=== PATIENT | male | born 1955 | race Caucasian/White ===

== ENCOUNTER 2016-10-04 08:57 | Inpatient (IN) | payer OTHER ==
[2016-10-04] VITALS (13 sets, daily range): BP systolic 126–158; BP diastolic 76–95; PULSE 62–74; RESP 10–18; TEMP 98.1; Ht 170.2 cm; Wt 65.9 kg
[~2016-10-04] VITALS: Ht 170.2 cm; Wt 65.9 kg
[2016-10-04] MEDS ORDERED: ASPIRIN 81 MG TAB PO STA (09:09)
[2016-10-04] MEDS ORDERED: NITROGLYCERIN (SL) 0.4 MG TAB SL ONE (09:30)
--- NOTE | 2016-10-04 09:35 | ERA ---
ER Documentation Chief Complaint Date/Time DATE: 10/04/16 TIME: 09:30 Chief Complaint CP and sob sice yesterday. SEnd by MD. PHAN 61-year-old male with a history of hypertension and diabetes presenting to the ER with chest pain. He states the pain started yesterday while he was walking around 1 PM. It improved with rest. This morning he was walking in his house and started having the chest pain again. The pain is a pressure-like pain with associated palpitations, diaphoresis, dizziness, nausea but no vomiting. His pain lasted about 2 hours today. It was initially a 10 out of 10, currently a 5 out of 10. He went to a clinic where he received aspirin and was referred to the ER for further workup. Pain is nonradiating. Worse with exertion, better with rest. ROS All systems reviewed and are negative except as per history of present illness. PMhx/Soc Medical and Surgical Hx: pt denies Surgical Hx History of Surgery: No Hx Cardiac Disorders: Yes (Hypertension) Hx Miscellaneous Medical Probl: Yes (Diabetes, high cholesterol) Hx Alcohol Use: Yes Hx Substance Use: No Hx Tobacco Use: No Smoking Status: Never smoker FmHx Family History: diabetes (Mom), No coronary disease Physical Exam Vitals Vital Signs Date Time Temp Pulse Resp B/P Pulse Ox O2 Delivery O2 Flow Rate FiO2 10/04/16 09:52 98.1 70 18 145/83 98 10/04/16 09:23 Nasal Cannula 2 10/04/16 09:02 97.1 80 18 194/93 98 Physical Exam Const: Well-appearing, no distress, no diaphoresis Head: Atraumatic Eyes: Normal Conjunctiva ENT: Normal External Ears, Nose and Mouth. Neck: Full range of motion.. No JVD. No meningismus. Resp: Clear to auscultation bilaterally Cardio: Regular rate and rhythm, no murmurs, rubs, gallops 2+ distal pulses Abd: Soft, non tender, non distended. No pulsatile mass. Normal bowel sounds Skin: No petechiae or rashes Back: No midline or flank tenderness Ext: No cyanosis, or edema Neur: Awake and alert Psych: Normal Mood and Affect Result Diagram: 10/04/16919 Results 24 hrs Laboratory Tests Test 10/04/16 09:20 Prothrombin Time 12.1Sec Prothrombin Time Ratio 0.9 INR International Normalized Ratio 0.90 Activated Partial Thromboplast Time 24.1Sec Sodium Level 135mmol/L Potassium Level 4.1mmol/L Chloride Level 95mmol/L Carbon Dioxide Level 29mmol/L Anion Gap 15 Blood Urea Nitrogen 16mg/dl Creatinine 0.84mg/dl Glucose Level 529mg/dl Calcium Level 9.3mg/dl Troponin I Pending Current Medications Medications (Trade) Dose Ordered Sig/Dena Route PRN Reason Start Time Stop Time Status Last Admin Dose Admin Aspirin (Aspirin) 162 mg ONCE STAT PO 10/04/16 09:09 10/04/16 09:11 DC 10/04/16 09:23 Nitroglycerin 1 tab 1 tab ONCE ONCE SL 10/04/16 09:30 10/04/16 09:31 DC 10/04/16 09:35 Sodium Chloride (NS) 1,000 ml @ 1,000 mls/hr Q1H ONCE IV 10/04/16 10:20 10/04/16 11:19 10/04/16 10:22 Ondansetron HCl (Zofran Inj) 4 mg ONCE STAT IV 10/04/16 10:20 10/04/16 10:22 DC Insulin Human Lispro (Humalog) 10 unit ONCE STAT SC 10/04/16 10:22 10/04/16 10:23 DC Procedures/MDM EKG #1: Rate/Rhythm: Normal sinus rhythm with sinus arrhythmia QRS, ST, T-waves: ST elevations in V2 through V4 with T-wave inversions in 1 and aVL, mild NV depressions in inferolateral leads Impression: Does not appear to be STEMI, but concerning for ischemia EKG #2: Rate/Rhythm: Normal sinus rhythm QRS, ST, T-waves: ST elevations in V2 through V4 with T-wave inversions in 1 and aVL, mild NV depressions in inferolateral leads Impression: Concerning for ischemia, unchanged compared to previous EKG#3: Rate/Rhythm: Normal sinus rhythm QRS, ST, T-waves: Anterior ST elevations, inferior ST elevations and NV depressions noted as well Impression: Acute anterior STEMI Chest X-ray 1V Interpreted by me: Soft Tissue: No acute abnormalities Bones: No acute abnormalities Mediastinum/Cardiac Silhouette/Lungs: No acute abnormalities Labs CBC: no anemia or evidence of infection BMP: Hyperglycemia without evidence of acidosis Troponin elevated MDM Patient is presenting with chest pain. Patient's symptoms are concerning for cardiac cause will require inpatient workup and continuous monitoring. Aspirin 162 mg given. Nitro sublingual given for chest pain and hypertension with improvement in his blood pressure and his symptoms. He had resolution of his chest pain. EKG is concerning for ischemia but does not meet STEMI criteria. I have a low suspicion for aortic dissection, aortic rupture, or pulmonary embolism. Labs are notable for hyperglycemia. 1 L of IV fluids was started. Insulin 10 units subcu was ordered. At, 10:20 patient had an episode of vomiting and increasing chest pain. Repeat EKG was done and showed evidence of an acute STEMI. Kitchen Supervisor was activated. Dr. Dugan was at bedside within minutes. Patient was consented for the Kitchen Supervisor and taken there immediately. Critical Care Time: 40 minutes Treatments/Evaluations: Close monitoring and treatment of unstable vital signs, cardiorespiratory, and neurologic status, while maintaining tight balance of fluid, respiratory, and cardiac interventions. This time includes discussing the case with the patient and the patients family. This time does not include all procedures stated elsewhere in this record. This time also includes reviewing old records, labs and radiological studies. This time includes examining and re-examining the patient. Additionally, this time also includes arranging care with admitting and consulting physicians. Accepting Care Team: Current data and ongoing care discussed. Time: Time of admission Primary Provider: Kaye Consulting: Ritchie Outstanding Data: none Departure Diagnosis: Primary Impression: Uncontrolled hypertension Additional Impressions: Acute ST elevation myocardial infarction (STEMI) Qualified Code: I21.3 - Acute ST elevation myocardial infarction (STEMI), unspecified artery Hyperglycemia Condition: Critical SEYMOUR HELLER MD Oct 04, 2016 09:35
[2016-10-04 09:37] LABS: ADD SCAN DIFF NO
[2016-10-04 09:40] LABS: BASOPHILS % 0.1 % (0.0-2.0); EOSINOPHILS % 0.3 % (0.0-7.0); HEMOGLOBIN 15.8 g/dl (14.0-18.0); LYMPHOCYTES % 11.4 % (15.0-51.0); MEAN CORPUSCULAR HEMOGLOBIN 31.4 pg (29.0-33.0); MEAN CORPUSCULAR HGB CONC 35.1 g/dl (32.0-37.0); MEAN CORPUSCULAR VOLUME 89.5 fl (82.0-101.0); MEAN PLATELET VOLUME 11.4 fl (7.4-10.4); MONOCYTE # 0.5 10^3/ul (0.3-0.9); MONOCYTES % 5.2 % (0.0-11.0); NEUTROPHIL # 7.2 10^3/ul (1.6-7.5); NEUTROPHILS % 82.4 % (39.0-77.0); PLATELET COUNT 184 10^3/UL (140-415); RED BLOOD COUNT 5.03 10^6/ul (4.70-6.10); RED CELL DISTRIBUTION WIDTH 12.4 % (11.5-14.5); WHITE BLOOD COUNT 8.8 10^3/ul (4.8-10.8)
[2016-10-04 09:58] LABS: INR 0.9; PROTIME 12.1 Sec (12.2-14.2); PT RATIO 0.9
[2016-10-04 09:59] LABS: PARTIAL THROMBOPLASTIN TIME 24.1 Sec (25.0-35.0)
[2016-10-04 10:05] LABS: CALCIUM 9.3 mg/dl (8.4-10.2); CREATININE 0.84 mg/dl (0.61-1.24); POTASSIUM 4.1 mmol/L (3.5-5.1)
--- NOTE | 2016-10-04 10:11 | RADRPT ---
PROCEDURE: Chest x-ray CLINICAL INDICATION: Chest pain TECHNIQUE: Chest single view COMPARISON: None FINDINGS: The heart is normal in size. The pulmonary vessels are normal in caliber. The lungs are clear. Th e costophrenic angles are sharp. The visualized bony thorax is unremarkable. IMPRESSION: No acute cardiopulmonary disease. RPTAT: HH .Aryan Andino MD, Date Time Electronically viewed and signed by .Aryan Andino MD, MD on 10/04/2016 10:11 .W/
[2016-10-04] MEDS ORDERED: SOD CHLORIDE 0.9% 1,000 ML IV ONE (10:20)
[2016-10-04] MEDS ORDERED: ONDANSETRON 4 MG INJ IV STA (10:20)
[2016-10-04] MEDS ORDERED: INSULIN LISPRO 100 UNIT/ML VIAL SC STA (10:22)
[2016-10-04 10:30] LABS: TROPONIN-I 0.208 ng/ml (0.00-0.12)
--- NOTE | 2016-10-04 10:40 | CONS ---
Date/Time of Note Date/Time of Note DATE: 10/04/16 TIME: 10:35 Assessment/Plan Assessment/Plan Chief Complaint/Hosp Course Anterior STEMI: to veterinary laboratory technician for immediate angio and PCI DM: new diagnosis -emergent cath -further recs to follow Problems: Consultation Date/Type/Reason Admit Date/Time Date of Consultation: Oct 04, 2016 Type of Consultation: Cardiology Reason for Consultation STEMI Referring Provider: SEYMOUR HELLER MD Hx of Present Illness 61 yo M with no prior medical history (undiagnosed DM based on glucose), who presented with chest pain. He had on and off chest pain yesterday and was constant starting this am. In the ED initial EKGs were thought to be nondiagnostic of STEMI and his pain improved with NTG. Subsequent EKG after he vomited showed an anterior STEMI. Pt is still having chest pain. per hPI Social History Smoking Status: Never smoker Exam/Review of Systems Vital Signs Vitals Vital Signs Date Time Temp Pulse Resp B/P Pulse Ox O2 Delivery O2 Flow Rate FiO2 10/04/16 09:52 98.1 70 18 145/83 98 10/04/16 09:23 Nasal Cannula 2 Exam Constitutional: alert, oriented Psych: no complaints Head: atraumatic, normocephalic Neck: No jvd Respiratory: crackles/rales, No clear to auscultation Cardiovascular: regular rate and rhythm, No edema Gastrointestinal: non-tender, soft Neurological: nl mental status, nl speech Results Result Diagram: 10/04/1620 10/04/16 0920 Results 24 hrs Laboratory Tests Test 10/04/16 09:20 White Blood Count 8.8 Red Blood Count 5.03 Hemoglobin 15.8 Hematocrit 45.0 Mean Corpuscular Volume 89.5 Mean Corpuscular Hemoglobin 31.4 Mean Corpuscular Hemoglobin Concent 35.1 Red Cell Distribution Width 12.4 Platelet Count 184 Mean Platelet Volume 11.4 H Neutrophils % 82.4 H Lymphocytes % 11.4 L Monocytes % 5.2 Eosinophils % 0.3 Basophils % 0.1 Nucleated Red Blood Cells % 0.0 Neutrophils # 7.2 Lymphocytes # 1.0 Monocytes # 0.5 Eosinophils # 0.0 Basophils # 0.0 Nucleated Red Blood Cells # 0.0 Prothrombin Time 12.1 L Prothrombin Time Ratio 0.9 INR International Normalized Ratio 0.90 Activated Partial Thromboplast Time 24.1 L Sodium Level 135 Potassium Level 4.1 Chloride Level 95 L Carbon Dioxide Level 29 Anion Gap 15 Blood Urea Nitrogen 16 Creatinine 0.84 Glucose Level 529 *H Calcium Level 9.3 Troponin I 0.208 *H Medications Medications Current Medications Sodium Chloride (NS) 1,000 ml @ 1,000 mls/hr Q1H ONCE IV Last administered on 10/04/16t 10:22; Admin Dose 1,000 MLS/HR; Start 10/04/16 at 10:20; Stop at 11:19 CAITLIN VACA Oct 04, 2016 10:39
[2016-10-04] MEDS ORDERED: NITROGLYCERIN (IC) 100 MCG/ML INJ ONE (10:47)
[2016-10-04] MEDS ORDERED: IODIXANOL LOCM 50 ML BTL ONE (10:47)
[2016-10-04] MEDS ORDERED: IODIXANOL LOCM 100 ML BTL ONE (10:47)
[2016-10-04] MEDS ORDERED: LIDOCAINE 1% (MDV) 20 ML INJ ONE (10:47)
[2016-10-04] MEDS ORDERED: MIDAZOLAM 1 MG/ML 2 ML INJ ONE (10:48)
[2016-10-04] MEDS ORDERED: FENTAnyl 50 MCG/ML VIAL ONE (10:49)
[2016-10-04] MEDS ORDERED: TICAGRELOR 90 MG TABLET ONE (10:58)
[2016-10-04] MEDS ORDERED: VERAPAMIL 5 MG INJ ONE (10:58)
[2016-10-04] MEDS ORDERED: BIVALIRUDIN 250MG /NS 50 ML 50 ML IVPB ONE (11:03)
--- NOTE | 2016-10-04 11:29 | OPR ---
Date/Time of Note Date/Time of Note DATE: 10/04/16 TIME: 11:29 Operative Report Free Text/Dictation Procedure Date: 10/04/2016 Procedures Performed: 1)Left heart catheterization with selective left and right coronary angiography. 2)Balloon angioplasty and stenting of the mid LAD with a Synergy 2.5 x 20 stent in the setting of a STEMI 3)Right femoral angiography and Perclose closure device. Pre-operative Diagnosis:anterior STEMI Post-operative Diagnosis:same, s/p PCI of LAD Indications: Description of Procedure: After informed consent, the patient was brought to the cardiac catheterization lab. The procedure site was prepped and draped in usual manner. The patient was premedicated with versed 1 mg and fentanyl 25 mcg. 8mL lidocaine was injected into the right groin. Next using the Seldinger technique, the 6 kinyarwanda sheath was inserted into the right femoral artery. Next using the JR4 and EBU 3.5, selective angiography of the left and right coronary arteries were obtained. The JR catheter accidently entered the LV so hemodynamics were obtained. The decision was made to proceed with PCI of the LAD as it was occluded in the setting of a STEMI. The EBU 3.5 guide was advanced and engaged into the left coronary artery. After appropriate anticoagulation and antiplatelets were given , the BMW angioplasty wire was advanced past the lesion and HORTENCIA 1 flow was seen. Next the 2.0 X 12 balloon was used to dilate the lesion times 2 at a maximum of 8 elisabet. Subsequently, the Synergy 2.5 x 20 stent was advanced to the lesion and deployed at 12 elisabet. Next the stent was post dilated with the 2.75 X 8 noncompliant balloon times 3 at a maximum of 12 elisabet. Final angiography revealed HORTENCIA 3 flow, no edge dissection, and appropriate stent expansion. Next all equipment was removed and hemostasis was achieved by Perclose closure device after femoral angiography was obtained. Findings: Anatomy/Hemodynamics: Left main:ostial 20% LAD: prox 20-30%, mid 100% immediately after a small diag Diagonal: 1mm vessel with diffuse ostial to prox 90% Circumflex: distal vessel has diffuse 80-90% disease supplying a 2mm OM Obtuse marginal: luminal irregularities RCA:20-30% plaquing PDA:mid 70% PLV:luminal irregularities LV angiography:not done LV-Ao: no gradient LVEDP: 31 mmHg Contrast used:110 mL Fluoroscopy time:5.3 min STEMI activation at 10:25 am, balloon time 10:59am. Medications used: Versed 1mg [id number] Angiomax bolus plus drip ASA given in ER ticagrelor 180mg NTG 200mcg IC x 1 verpamil 100 IC x 2 Equipment used: 6 kinyarwanda EBU 3.5 guide BMW angioplasty wire 2 x 12 balloon Synergy 2.5 x 20 drug eluting stent 2.75 x 8 noncompliant balloon Assessment: Anterior STEMI: s/p PCI of mid LAD 100% occlusion without complications CAD: residual disease of the PDA and distal Cx which can be revascularized PRN and do not need to be done inpt unless residual symptoms DM: new diagnosis Plan: -continue angiomax 4 hrs post PCI for STEMI -ASA 81mg -ticagrelor 90mg BID -lipitor -coreg -start ACEI if Cr ok -CAITLIN Ace Oct 04, 2016 11:29
[2016-10-04] MEDS ORDERED: morphine 2 MG INJ IV PRN (11:30)
--- NOTE | 2016-10-04 14:00 | QN ---
Documentation Comment H&P dict a/p 1. cards: stemi, s/p pci LAD cont 2* prevention 2. dm SYLVIA MATA MD Oct 04, 2016 14:00
[2016-10-04] MEDS ORDERED: SODIUM CHLORIDE 0.45% 500 ML BAG IV* ONE (14:30)
[2016-10-04] MEDS ORDERED: GLUCOSE GEL 15 GRAM TUBE PO PRN ×2 (14:30)
[2016-10-04] MEDS ORDERED: DEXTROSE 50% 50 ML SYRINGE IV PRN ×2 (14:30)
[2016-10-04] MEDS ORDERED: GLUCAGON 1 MG INJ IM PRN (14:30)
[2016-10-04] MEDS ORDERED: GLUCOSE GEL 15 GRAM TUBE BUCCAL PRN (14:30)
[2016-10-04] MEDS: INSULIN ASPART [NOVOLOG] 3 ML PEN SC SCH ×3 (15:00→20:37)
--- NOTE | 2016-10-04 15:10 | RADRPT ---
PROCEDURE: Chest radiograph series. CLINICAL INDICATION: Chest pain. TECHNIQUE: PA and lateral chest x-ray. COMPARISON: Chest radiograph 12/21/2014 FINDINGS: The cardiomediastinal silhouette is unremarkable. The lungs and costophrenic angles are clear. The o sseous structures are unremarkable. IMPRESSION: 1. Unremarkable chest radiograph series. RPTAT: [facility] .Anival Montesinos MD, MD Date Time Electronically viewed and signed by .Anival Montesinos MD, on 10/04/2016 15:10 .B/
[2016-10-04 16:04] LABS: CK-MB 84.9 ng/ml (0.0-2.4)
[2016-10-04 16:07] LABS: TROPONIN-I 33.9 ng/ml (0.00-0.12)
[2016-10-04] MEDS: SOD CHLORIDE 0.45% 1,000 ML IV SCH ×2 (16:13→23:46)
[2016-10-04] MEDS: ATORVASTATIN 80 MG TAB PO SCH (20:27)
[2016-10-04] MEDS: TICAGRELOR 90 MG TABLET PO SCH (20:38)
[2016-10-04 21:55] LABS: CK-MB 89.2 ng/ml (0.0-2.4); TROPONIN-I 58.1 ng/ml (0.00-0.12)
[2016-10-05] VITALS (21 sets, daily range): BP systolic 97–139; BP diastolic 61–86; PULSE 65–76; RESP 5–20
[2016-10-05] MEDS: ACCU-CHEK XX SCH (02:00)
[2016-10-05 05:38] LABS: ADD SCAN DIFF NO
[2016-10-05 05:49] LABS: BASOPHILS % 0.2 % (0.0-2.0); EOSINOPHILS # 0.1 10^3/ul (0.0-0.5); EOSINOPHILS % 0.7 % (0.0-7.0); HEMATOCRIT 38.6 % (42.0-52.0); HEMOGLOBIN 13.6 g/dl (14.0-18.0); LYMPHOCYTES # 1.8 10^3/ul (0.8-2.9); LYMPHOCYTES % 20.8 % (15.0-51.0); MEAN CORPUSCULAR HEMOGLOBIN 31.7 pg (29.0-33.0); MEAN CORPUSCULAR HGB CONC 35.2 g/dl (32.0-37.0); MEAN PLATELET VOLUME 11.3 fl (7.4-10.4); MONOCYTE # 0.9 10^3/ul (0.3-0.9); MONOCYTES % 10.3 % (0.0-11.0); NEUTROPHIL # 5.7 10^3/ul (1.6-7.5); NEUTROPHILS % 67.5 % (39.0-77.0); PLATELET COUNT 174 10^3/UL (140-415); RED BLOOD COUNT 4.29 10^6/ul (4.70-6.10); RED CELL DISTRIBUTION WIDTH 12.7 % (11.5-14.5); WHITE BLOOD COUNT 8.5 10^3/ul (4.8-10.8)
[2016-10-05 06:11] LABS: CALCIUM 8.5 mg/dl (8.4-10.2); CREATININE 0.75 mg/dl (0.61-1.24); POTASSIUM 3.6 mmol/L (3.5-5.1)
[2016-10-05] MEDS: SOD CHLORIDE 0.45% 1,000 ML IV SCH ×2 (06:46→14:30)
--- NOTE | 2016-10-05 08:10 | RADRPT ---
Echocardiogram Report Patient Name: EMELY CRUZ Gender: Male Date: 1955 Study Date: 04-Oct-2016 Spindle Tester: Ezequiel Thao RDCS Location: [id number] Ref. Physician: CAITLIN VACA Quality: Adequate Procedures: Transthoracic echocardiogram with complete 2D, M-Mode, and doppler examination. Indications: anterior STEMI. 2D/M Mode Doppler Measurement Value Normal Ranges Measurement Value Normal Ranges LVIDd 2D 4.8 3.5 - 5.6 cm AV Peak Ephraim 0.9 m/sec LVIDs 2D 3.8 2.1 - 4.1 cm AV Peak PG 3.0 mmHg FS 2D 22.1 % AI Peak PG 21.0 mmHg LVPWd 2D 1.0 0.6 - 1.1 cm AI Peak Ephraim 2.3 m/sec IVSd 2D 1.1 0.6 - 1.1 cm AI PHT 849.0 msec IVS/LVPW 2D 1.0 LVOT Peak Ephraim 0.8 m/sec AoR Diam 2D 3.4 2.0 - 3.7 cm LVOT Peak PG 2.0 mmHg LA/Ao 2D 1 0 - 1 MV E Peak Ephraim 0.5 m/sec EDV 2D 113.0 cm3 MV A Peak Ephraim 0.8 m/sec ESV 2D 53.6 cm3 MV E/A 0.6 LA Dimen 2D 2.8 2.3 - 4.0 cm MV Decel Time 176 msec MV E/A 0.6 Findings Left Ventricle: Normal left ventricular cavity size. Normal left ventricular wall thickness. Moderate left ventricular systolic dysfunction. Ejection fraction is visually estimated at 40 %. Tissue Doppler/Mitral Doppler indices are consistent with impaired relaxation (Stage I diastolic dysfunction). Resting Segmental Wall Motion Analysis: Severe hypokinesis/akinesis of the mid to distal septum and anterior mckay. Akinesis of the apex. Right Ventricle: Normal right ventricular size. Normal right ventricular systolic function. Left Atrium: The left atrium is normal in size. Right Atrium: The right atrium is normal in size. Mitral Valve: Mild mitral valve regurgitation. Aortic Valve: No hemodynamically significant aortic stenosis by doppler. Aortic cusps appear mildly calcified. Trace to mild aortic valve regurgitation. Tricuspid Valve: Normal appearance of the tricuspid valve. Unable to obtain RVSP due to minimal presence of tricuspid regurgitation. Pulmonic Valve: Pulmonic valve not well visualized. Pericardium: Normal pericardium with no significant pericardial effusion. Aorta: Normal aortic root. IVC: Normal size and normal respiratory collapse consistent with normal right atrial pressure. Conclusions Normal left ventricular cavity size. Normal left ventricular wall thickness. Moderate left ventricular systolic dysfunction. Ejection fraction is visually estimated at 40 %. Tissue Doppler/Mitral Doppler indices are consistent with impaired relaxation (Stage I diastolic dysfunction). Severe hypokinesis/akinesis of the mid to distal septum and anterior mckay. Akinesis of the apex. Mild mitral valve regurgitation. Unable to obtain RVSP due to minimal presence of tricuspid regurgitation. RA pressure estimated to be 3 mmHg. Electronically Signed By: Caitlin Vaca 05-Oct-2016 08:09:44 -0700 Patient Name: EMELY CRUZ Study Date: 04-Oct-2016 [id number]
[2016-10-05] MEDS: INSULIN ASPART [NOVOLOG] 3 ML PEN SC SCH ×4 (08:23→21:59)
--- NOTE | 2016-10-05 08:29 | CONS ---
Date/Time of Note Date/Time of Note DATE: 10/05/16 TIME: 08:24 Assessment/Plan Assessment/Plan Chief Complaint/Hosp Course Anterior STEMI: s/p PCI of occluded mid LAD. Ischemic cardiomyopathy:EF 40% by echo. Secondary to CT. May have stunning and hopefully recovery. Compensated by exam CAD: Has residual mid PDA and distal Cx disease which can be done PRN based on symptoms or outpt stress testing. DM: new diagnosis -ASA 81mg -ticagrelor 90mg BID -coreg 3.125mg BID, uptitrate as tolerated -add lisinopril 5mg -lipitor 80mg -ok for tele -possible d/c tomorrow Problems: Consultation Date/Type/Reason Admit Date/Time Oct 04, 2016 at 15:53 Initial Consult Date 10/04/16 Type of Consultation: Cardiology Referring Provider: SEYMOUR HELLER MD 24 HR Interval Summary Free Text/Dictation No o/n events. No arrhythmias on tele. No chest pain or SOB. Exam/Review of Systems Vital Signs Vitals Vital Signs Date Time Temp Pulse Resp B/P Pulse Ox O2 Delivery O2 Flow Rate FiO2 10/05/16 06:00 69 17 122/80 98 10/05/16 04:00 98.6 10/04/16 19:00 Room Air 10/04/16 09:23 2 Intake and Output 10/04/16 10/04/16 10/05/16 15:00 23:00 07:00 Intake Total 988 ml Output Total 700 ml Balance 288 ml Exam Constitutional: alert, oriented Psych: nl mood/affect, no complaints Head: atraumatic, normocephalic Neck: No jvd Respiratory: clear to auscultation, No crackles/rales Cardiovascular: regular rate and rhythm, No edema Gastrointestinal: non-tender, soft Extremities: normal pulses, other (right groin without hematoma or bruit ), No edema Neurological: nl mental status, nl speech Results Result Diagram: 10/05/16 0455 10/05/16 0455 Results 24 hrs Laboratory Tests Test 10/04/16 09:20 10/04/16 14:22 10/04/16 15:25 10/04/16 17:18 White Blood Count 8.8 Red Blood Count 5.03 Hemoglobin 15.8 Hematocrit 45.0 Mean Corpuscular Volume 89.5 Mean Corpuscular Hemoglobin 31.4 Mean Corpuscular Hemoglobin Concent 35.1 Red Cell Distribution Width 12.4 Platelet Count 184 Mean Platelet Volume 11.4 H Neutrophils % 82.4 H Lymphocytes % 11.4 L Monocytes % 5.2 Eosinophils % 0.3 Basophils % 0.1 Nucleated Red Blood Cells % 0.0 Neutrophils # 7.2 Lymphocytes # 1.0 Monocytes # 0.5 Eosinophils # 0.0 Basophils # 0.0 Nucleated Red Blood Cells # 0.0 Prothrombin Time 12.1 L Prothrombin Time Ratio 0.9 INR International Normalized Ratio 0.90 Activated Partial Thromboplast Time 24.1 L Sodium Level 135 Potassium Level 4.1 Chloride Level 95 L Carbon Dioxide Level 29 Anion Gap 15 Blood Urea Nitrogen 16 Creatinine 0.84 Glucose Level 529 *H Calcium Level 9.3 Troponin I 0.208 *H 33.900 *H Bedside Glucose 227 H 227 H Creatine Kinase 1289 H Creatine Kinase Index 6.6 Creatinine Kinase MB (Mass) 84.90 H Test 10/04/16 20:31 10/04/16 21:20 10/05/16 02:18 10/05/16 04:55 Bedside Glucose 252 H 218 Creatine Kinase 1416 H Creatine Kinase Index 6.3 Creatinine Kinase MB (Mass) 89.20 H Troponin I 58.100 *H White Blood Count 8.5 Red Blood Count 4.29 L Hemoglobin 13.6 L Hematocrit 38.6 L Mean Corpuscular Volume 90.0 Mean Corpuscular Hemoglobin 31.7 Mean Corpuscular Hemoglobin Concent 35.2 Red Cell Distribution Width 12.7 Platelet Count 174 Mean Platelet Volume 11.3 H Neutrophils % 67.5 Lymphocytes % 20.8 Monocytes % 10.3 Eosinophils % 0.7 Basophils % 0.2 Nucleated Red Blood Cells % 0.0 Neutrophils # 5.7 Lymphocytes # 1.8 Monocytes # 0.9 Eosinophils # 0.1 Basophils # 0.0 Nucleated Red Blood Cells # 0.0 Sodium Level 128 L Potassium Level 3.6 Chloride Level 99 Carbon Dioxide Level 25 Anion Gap 8 Blood Urea Nitrogen 13 Creatinine 0.75 Glucose Level 233 #H Calcium Level 8.5 Test 10/05/16 08:15 Bedside Glucose 250 H Medications Medications Current Medications Morphine Sulfate (morphine) 2 mg Q2H PRN IV FOR NON CARDIAC PAIN (4-10); Start 10/04/16 at 11:30 Ticagrelor (Brilinta) 90 mg BID PO Last administered on 10/04/16 20:38; Admin Dose 90 MG; Start 10/04/16 at 21:00 Aspirin (Aspirin) 81 mg DAILY PO ; Start 10/05/16 at 09:00 Atorvastatin Calcium (Lipitor) 80 mg HS PO Last administered on 10/04/16 20:27 ; Admin Dose 80 MG; Start 10/04/16 at 21:00 Carvedilol 3.125 mg 3.125 mg BID PO Last administered on 10/04/16 20:28; Admin Dose 3.125 MG; Start 10/04/16 at 21:00 Sodium Chloride (1/2 NS) 1,000 ml @ 125 mls/hr Q8H IV Last administered on 06:46; Admin Dose 125 MLS/HR; Start 10/04/16 at 14:30 Diagnostic Test (Pha) (Accu-Chek) 1 ea 02 XX ; Start 10/05/16 at 02:00 Miscellaneous Information 1 ea NOTE XX ; Start 10/04/16 at 14:30 Glucose (Glutose) 15 gm Q15M PRN PO DECREASED GLUCOSE; Start 10/04/16 at 14:30 Glucose (Glutose) 22.5 gm Q15M PRN PO DECREASED GLUCOSE; Start 10/04/16 at 14: 30 Dextrose (D50w Syringe) 25 ml Q15M PRN IV DECREASED GLUCOSE; Start 10/04/16 at 14:30 Dextrose (D50w Syringe) 50 ml Q15M PRN IV DECREASED GLUCOSE; Start 10/04/16 at 14:30 Glucagon (Glucagen) 1 mg Q15M PRN IM DECREASED GLUCOSE; Start 10/04/16 at 14:30 Glucose (Glutose) 15 gm Q15M PRN BUCCAL DECREASED GLUCOSE; Start 10/04/16 at 14 :30 Lisinopril (Zestril) 5 mg DAILY PO ; Start 10/05/16 at 09:00; Status CAITLIN WILLIS Oct 05, 2016 08:29
[2016-10-05] MEDS: ASPIRIN 81 MG TAB PO SCH (10:12)
[2016-10-05] MEDS: LISINOPRIL 5 MG TAB PO SCH (10:12)
[2016-10-05] MEDS: TICAGRELOR 90 MG TABLET PO SCH ×2 (10:18→21:28)
--- NOTE | 2016-10-05 15:21 | PN ---
Date/Time of Note Date/Time of Note DATE: 10/05/16 TIME: 15:20 Assessment/Plan VTE Prophylaxis VTE Prophylaxis Intervention: other Lines/Catheters IV Catheter Type (from Nrsg): Peripheral IV Assessment/Plan Assessment/Plan 1. cards: stemi s/p stent LAD< cont secondary prevention 2. incresae activity 3. dm, resume metoformin in am Subjective 24 Hr Interval Summary Free Text/Dictation doing well, no furher pain, no walking yet, eating well Exam/Review of Systems Vital Signs Vitals Vital Signs Date Time Temp Pulse Resp B/P Pulse Ox O2 Delivery O2 Flow Rate FiO2 10/05/16 14:00 70 17 97/67 98 Room Air 10/05/16 12:00 98.0 10/04/16 09:23 2 Intake and Output 10/04/16 10/04/16 10/05/16 15:00 23:00 07:00 Intake Total 988 ml 1843.25 ml Output Total 700 ml Balance 288 ml 1843.25 ml Exam nad, soft nt, ctab, ant, no pain or hematoma in groin Results Result Diagram: 10/05/16 0455 10/05/16 0455 Results 24 hrs Laboratory Tests Test 10/04/16 15:25 10/04/16 17:18 10/04/16 20:31 10/04/16 21:20 Creatine Kinase 1289 H 1416 H Creatine Kinase Index 6.6 6.3 Creatinine Kinase MB (Mass) 84.90 H 89.20 H Troponin I 33.900 *H 58.100 *H Bedside Glucose 227 H 252 H Test 10/05/16 02:18 10/05/16 04:55 10/05/16 08:15 10/05/16 12:16 Bedside Glucose 218 250 H 256 H White Blood Count 8.5 Red Blood Count 4.29 L Hemoglobin 13.6 L Hematocrit 38.6 L Mean Corpuscular Volume 90.0 Mean Corpuscular Hemoglobin 31.7 Mean Corpuscular Hemoglobin Concent 35.2 Red Cell Distribution Width 12.7 Platelet Count 174 Mean Platelet Volume 11.3 H Neutrophils % 67.5 Lymphocytes % 20.8 Monocytes % 10.3 Eosinophils % 0.7 Basophils % 0.2 Nucleated Red Blood Cells % 0.0 Neutrophils # 5.7 Lymphocytes # 1.8 Monocytes # 0.9 Eosinophils # 0.1 Basophils # 0.0 Nucleated Red Blood Cells # 0.0 Sodium Level 128 L Potassium Level 3.6 Chloride Level 99 Carbon Dioxide Level 25 Anion Gap 8 Blood Urea Nitrogen 13 Creatinine 0.75 Glucose Level 233 #H Hemoglobin A1c Calcium Level 8.5 Medications Medications Current Medications Morphine Sulfate (morphine) 2 mg Q2H PRN IV FOR NON CARDIAC PAIN (4-10); Start 10/04/16 at 11:30 Ticagrelor (Brilinta) 90 mg BID PO Last administered on 10/05/16 10:18; Admin Dose 90 MG; Start 10/04/16 at 21:00 Aspirin (Aspirin) 81 mg DAILY PO Last administered on 10/05/16 10:12; Admin Dose 81 MG; Start 10/05/16 at 09:00 Atorvastatin Calcium (Lipitor) 80 mg HS PO Last administered on 10/04/16 20:27 ; Admin Dose 80 MG; Start 10/04/16 at 21:00 Carvedilol 3.125 mg 3.125 mg BID PO Last administered on 10/05/16 10:12; Admin Dose 3.125 MG; Start 10/04/16 at 21:00 Sodium Chloride (1/2 NS) 1,000 ml @ 125 mls/hr Q8H IV Last administered on 06:46; Admin Dose 125 MLS/HR; Start 10/04/16 at 14:30 Diagnostic Test (Pha) (Accu-Chek) 1 ea 02 XX ; Start 10/05/16 at 02:00 Miscellaneous Information 1 ea NOTE XX ; Start 10/04/16 at 14:30 Glucose (Glutose) 15 gm Q15M PRN PO DECREASED GLUCOSE; Start 10/04/16 at 14:30 Glucose (Glutose) 22.5 gm Q15M PRN PO DECREASED GLUCOSE; Start 10/04/16 at 14: 30 Dextrose (D50w Syringe) 25 ml Q15M PRN IV DECREASED GLUCOSE; Start 10/04/16 at 14:30 Dextrose (D50w Syringe) 50 ml Q15M PRN IV DECREASED GLUCOSE; Start 10/04/16 at 14:30 Glucagon (Glucagen) 1 mg Q15M PRN IM DECREASED GLUCOSE; Start 10/04/16 at 14:30 Glucose (Glutose) 15 gm Q15M PRN BUCCAL DECREASED GLUCOSE; Start 10/04/16 at 14 :30 Lisinopril (Zestril) 5 mg DAILY PO Last administered on 10/05/16t 10:12; Admin Dose 5 MG; Start 10/05/16 at 09:00 SYLVIA MATA MD Oct 05, 2016 15:21
[2016-10-05] MEDS ORDERED: INSULIN GLARGINE [LANtus] 3 ML PEN SC SCH (20:00)
[2016-10-05] MEDS: ATORVASTATIN 80 MG TAB PO SCH ×2 (21:11→21:27)
[2016-10-05] MEDS ORDERED: INSULIN ASPART [NOVOLOG] 3 ML PEN SC ONE (22:00)
[2016-10-06] VITALS (9 sets, daily range): BP systolic 97–126; BP diastolic 59–72; PULSE 64–70; RESP 17–18
[2016-10-06] MEDS: ACCU-CHEK XX SCH (02:21)
[2016-10-06] MEDS: INSULIN ASPART [NOVOLOG] 3 ML PEN SC SCH ×3 (07:55→17:44)
[2016-10-06] MEDS: ASPIRIN 81 MG TAB PO SCH (08:49)
[2016-10-06] MEDS: LISINOPRIL 5 MG TAB PO SCH (08:49)
[2016-10-06] MEDS: TICAGRELOR 90 MG TABLET PO SCH (08:50)
--- NOTE | 2016-10-06 11:00 | CONS ---
Date/Time of Note Date/Time of Note DATE: 10/06/16 TIME: 10:58 Assessment/Plan Assessment/Plan Chief Complaint/Hosp Course Anterior STEMI: s/p PCI of occluded mid LAD. EF 40%. Doing well. No arrhythmias Ischemic cardiomyopathy:EF 40% by echo. Secondary to PR. May have stunning and hopefully recovery. Compensated by exam CAD: Has residual mid PDA and distal Cx disease which can be done PRN based on symptoms or outpt stress testing. DM: new diagnosis -ok for d/c from my perspective as >48 hrs -ASA 81mg -ticagrelor 90mg BID -coreg 3.125mg BID, uptitrate as outpt -lisinopril 5mg -lipitor 80mg -f/u with cardiology 1-2 weeks Problems: Consultation Date/Type/Reason Admit Date/Time Oct 04, 2016 at 15:53 Initial Consult Date 10/04/16 Type of Consultation: Cardiology Referring Provider: SEYMOUR HELLER MD 24 HR Interval Summary Free Text/Dictation No o/n events. No arrhythmias. Walking around without symptoms. Exam/Review of Systems Vital Signs Vitals Vital Signs Date Time Temp Pulse Resp B/P Pulse Ox O2 Delivery O2 Flow Rate FiO2 10/06/16 08:11 97.6 76 17 119/72 100 10/05/16 17:00 Room Air 10/04/16 09:23 2 Intake and Output 10/05/16 10/05/16 10/06/16 15:00 23:00 07:00 Intake Total 1868.75 ml 120 ml Output Total 550 ml Balance 1318.75 ml 120 ml Exam Constitutional: alert, oriented Psych: nl mood/affect, no complaints Head: atraumatic, normocephalic Neck: No jvd Respiratory: clear to auscultation, No crackles/rales Cardiovascular: regular rate and rhythm, No edema, No systolic murmur Gastrointestinal: non-tender, soft Neurological: nl mental status, nl speech Results Result Diagram: 10/05/16 0455 10/05/16 0455 Results 24 hrs Laboratory Tests Test 10/05/16 12:16 10/05/16 17:25 10/05/16 21:12 10/06/16 02:19 Bedside Glucose 256 H 218 359 H 100 Test 10/06/16 08:07 Bedside Glucose 129 Medications Medications Current Medications Morphine Sulfate (morphine) 2 mg Q2H PRN IV FOR NON CARDIAC PAIN (4-10); Start 10/04/16 at 11:30 Ticagrelor (Brilinta) 90 mg BID PO Last administered on 10/06/16 08:50; Admin Dose 90 MG; Start 10/04/16 at 21:00 Aspirin (Aspirin) 81 mg DAILY PO Last administered on 10/06/16 08:49; Admin Dose 81 MG; Start 10/05/16 at 09:00 Atorvastatin Calcium (Lipitor) 80 mg HS PO Last administered on 10/05/16 21:27 ; Admin Dose 80 MG; Start 10/04/16 at 21:00 Carvedilol (Coreg) 3.125 mg BID PO Last administered on 10/06/16 08:48; Admin Dose 3.125 MG; Start 10/04/16 at 21:00 Diagnostic Test (Pha) (Accu-Chek) 1 ea 02 XX Last administered on 10/06/16 02: 21; Admin Dose 1 EA; Start 10/05/16 at 02:00 Miscellaneous Information 1 ea NOTE XX ; Start 10/04/16 at 14:30 Glucose (Glutose) 15 gm Q15M PRN PO DECREASED GLUCOSE; Start 10/04/16 at 14:30 Glucose (Glutose) 22.5 gm Q15M PRN PO DECREASED GLUCOSE; Start 10/04/16 at 14: 30 Dextrose (D50w Syringe) 25 ml Q15M PRN IV DECREASED GLUCOSE; Start 10/04/16 at 14:30 Dextrose (D50w Syringe) 50 ml Q15M PRN IV DECREASED GLUCOSE; Start 10/04/16 at 14:30 Glucagon (Glucagen) 1 mg Q15M PRN IM DECREASED GLUCOSE; Start 10/04/16 at 14:30 Glucose (Glutose) 15 gm Q15M PRN BUCCAL DECREASED GLUCOSE; Start 10/04/16 at 14 :30 Lisinopril (Zestril) 5 mg DAILY PO Last administered on 10/06/16 08:49; Admin Dose 5 MG; Start 10/05/16 at 09:00 Insulin Glargine (Lantus) 8 unit DAILY@20 SC Last administered on 10/05/16 21: 58; Admin Dose 8 UNIT; Start 10/05/16 at 20:00 CAITLIN VACA Oct 06, 2016 11:00
[2016-10-06 12:40] LABS: ADD SCAN DIFF NO
[2016-10-06 12:43] LABS: BASOPHILS % 0.4 % (0.0-2.0); EOSINOPHILS # 0.1 10^3/ul (0.0-0.5); EOSINOPHILS % 1.1 % (0.0-7.0); HEMATOCRIT 40.7 % (42.0-52.0); HEMOGLOBIN 13.9 g/dl (14.0-18.0); LYMPHOCYTES # 1.8 10^3/ul (0.8-2.9); LYMPHOCYTES % 25.4 % (15.0-51.0); MEAN CORPUSCULAR HGB CONC 34.2 g/dl (32.0-37.0); MEAN CORPUSCULAR VOLUME 90.8 fl (82.0-101.0); MEAN PLATELET VOLUME 11.4 fl (7.4-10.4); MONOCYTE # 0.9 10^3/ul (0.3-0.9); MONOCYTES % 12.4 % (0.0-11.0); NEUTROPHIL # 4.2 10^3/ul (1.6-7.5); NEUTROPHILS % 59.7 % (39.0-77.0); PLATELET COUNT 167 10^3/UL (140-415); RED BLOOD COUNT 4.48 10^6/ul (4.70-6.10); RED CELL DISTRIBUTION WIDTH 12.9 % (11.5-14.5)
[2016-10-06 13:08] LABS: CALCIUM 8.8 mg/dl (8.4-10.2); CREATININE 0.82 mg/dl (0.61-1.24)
--- NOTE | 2016-10-06 14:17 | PN ---
Date/Time of Note Date/Time of Note DATE: 10/06/16 TIME: 13:57 Assessment/Plan VTE Prophylaxis VTE Prophylaxis Intervention: SCD's Lines/Catheters IV Catheter Type (from Nrs): Peripheral IV Assessment/Plan Assessment/Plan 61 yo male with: 1. STEMI, s/p stent LAD Remains stable Continue current meds Will need f/u with cardiology in 2 to 4 weeks Appreciate cardiology recs, patient Ok for d/c home today per Cardiology 2. Diabetes Mellitus: Continue current meds and resume Insulin at home. Follow up with PCP. 3. Hypertension: continue current meds 4. Hyperlipidemia: continue statins Prophylaxis: ambulatory and tolerating po Disposition: d/c plan home today Subjective 24 Hr Interval Summary Free Text/Dictation Patient doing well and Ok to d/c home today Follow up with PCP and cardiology outpatient Exam/Review of Systems Vital Signs Vitals Vital Signs Date Time Temp Pulse Resp B/P Pulse Ox O2 Delivery O2 Flow Rate FiO2 10/06/16 12:00 65 10/06/16 11:13 98.3 18 97/59 100 10/05/16 17:00 Room Air 10/04/16 09:23 2 Intake and Output 10/05/16 10/05/16 10/06/16 15:00 23:00 07:00 Intake Total 1868.75 ml 120 ml Output Total 550 ml Balance 1318.75 ml 120 ml Exam Constitutional: alert, oriented, well developed Respiratory: clear to auscultation, normal air movement Cardiovascular: nl pulses, regular rate and rhythm Gastrointestinal: non-tender, soft Musculoskeletal: nl extremities to inspection Extremities: normal pulses, other (no edema, clubbing or cyanosis ) Neurological: HIDES INSPECTOR II-XII intact, nl mental status, nl speech, nl strength Results Result Diagram: 10/06/16 1200 10/06/16 1200 Results 24 hrs Laboratory Tests Test 10/05/16 17:25 10/05/16 21:12 10/06/16 02:19 10/06/16 08:07 Bedside Glucose 218 359 H 100 129 Test 10/06/16 12:00 10/06/16 12:22 White Blood Count 7.0 Red Blood Count 4.48 L Hemoglobin 13.9 L Hematocrit 40.7 L Mean Corpuscular Volume 90.8 Mean Corpuscular Hemoglobin 31.0 Mean Corpuscular Hemoglobin Concent 34.2 Red Cell Distribution Width 12.9 Platelet Count 167 Mean Platelet Volume 11.4 H Neutrophils % 59.7 Lymphocytes % 25.4 Monocytes % 12.4 H Eosinophils % 1.1 Basophils % 0.4 Nucleated Red Blood Cells % 0.0 Neutrophils # 4.2 Lymphocytes # 1.8 Monocytes # 0.9 Eosinophils # 0.1 Basophils # 0.0 Nucleated Red Blood Cells # 0.0 Sodium Level 130 L Potassium Level 4.0 Chloride Level 98 Carbon Dioxide Level 25 Anion Gap 11 Blood Urea Nitrogen 17 Creatinine 0.82 Glucose Level 204 Calcium Level 8.8 Bedside Glucose 198 Medications Medications Current Medications Morphine Sulfate (morphine) 2 mg Q2H PRN IV FOR NON CARDIAC PAIN (4-10); Start 10/04/16 at 11:30 Ticagrelor (Brilinta) 90 mg BID PO Last administered on 10/06/16 08:50; Admin Dose 90 MG; Start 10/04/16 at 21:00 Aspirin (Aspirin) 81 mg DAILY PO Last administered on 10/06/16 08:49; Admin Dose 81 MG; Start 10/05/16 at 09:00 Atorvastatin Calcium (Lipitor) 80 mg HS PO Last administered on 10/05/16 21:27 ; Admin Dose 80 MG; Start 10/04/16 at 21:00 Carvedilol (Coreg) 3.125 mg BID PO Last administered on 10/06/16 08:48; Admin Dose 3.125 MG; Start 10/04/16 at 21:00 Diagnostic Test (Pha) (Accu-Chek) 1 ea 02 XX Last administered on 10/06/16 02: 21; Admin Dose 1 EA; Start 10/05/16 at 02:00 Miscellaneous Information 1 ea NOTE XX ; Start 10/04/16 at 14:30 Glucose (Glutose) 15 gm Q15M PRN PO DECREASED GLUCOSE; Start 10/04/16 at 14:30 Glucose (Glutose) 22.5 gm Q15M PRN PO DECREASED GLUCOSE; Start 10/04/16 at 14: 30 Dextrose (D50w Syringe) 25 ml Q15M PRN IV DECREASED GLUCOSE; Start 10/04/16 at 14:30 Dextrose (D50w Syringe) 50 ml Q15M PRN IV DECREASED GLUCOSE; Start 10/04/16 at 14:30 Glucagon (Glucagen) 1 mg Q15M PRN IM DECREASED GLUCOSE; Start 10/04/16 at 14:30 Glucose (Glutose) 15 gm Q15M PRN BUCCAL DECREASED GLUCOSE; Start 10/04/16 at 14 :30 Lisinopril (Zestril) 5 mg DAILY PO Last administered on 10/06/16 08:49; Admin Dose 5 MG; Start 10/05/16 at 09:00 Insulin Glargine (Lantus) 8 unit DAILY@20 SC Last administered on 10/05/16 21: 58; Admin Dose 8 UNIT; Start 10/05/16 at 20:00 NANCI LARKIN Oct 06, 2016 14:07
--- NOTE | 2016-10-06 14:18 | PDOCDIS ---
Discharge Instructions CONDITION Patient Condition: Good HOME CARE INSTRUCTIONS: Special Diet: CARB CONTROLLED ACTIVITY: Activity Restrictions: Rest between Activity Do not operate Machinery Do not operate Power Tool FOLLOW UP/APPOINTMENTS Follow-up Plan Follow up with PCP in 1 to 2 weeks Follow up with Cardiology in 2 to 4 weeks SCHOOL/WORK RELEASE May return to School/Work on: Oct 20, 2016 NANCI LARKIN Oct 06, 2016 14:18
[2016-10-06] MEDS ORDERED: LISI-313 PO (14:21)
[2016-10-06] MEDS ORDERED: LANT3I SC (14:21)
[2016-10-06] MEDS ORDERED: NOVO3I SC (14:21)
[2016-10-06] MEDS ORDERED: ATOR80TA75 PO (14:21)
[2016-10-06] MEDS ORDERED: TICA90TA PO (14:21)
[2016-10-06] MEDS ORDERED: ASPI81TA3 PO (14:21)
[2016-10-06] MEDS ORDERED: CARV3.1260 PO (14:21)
[2016-10-06] MEDS ORDERED: INSULIN ASPART [NOVOLOG] 3 ML PEN SC SCH (17:55)
[2016-10-06] MEDS ORDERED: INSULIN GLARGINE [LANtus] 3 ML PEN SC SCH (20:00)
--- NOTE | 2016-10-07 13:04 | HP ---
DATE OF ADMISSION: 10/04/2016 CHIEF COMPLAINT: Chest pain. HISTORY OF PRESENT ILLNESS: Mr. Almonte presents to the emergency room at [facility] with a one-day history of chest pain which became worse this morning, causing him to come here to the hospital. This is central and pressure-like in description. He was seen in the emergency room and his EKGs reveal ST-segment elevation and he was taken emergently to sleep lab technician. PAST MEDICAL HISTORY: Significant for hypertension and diabetes. MEDICATIONS: He is not able to recall. ALLERGIES: ALLERGIES NONE KNOWN. SOCIAL HISTORY: Patient lives in [place] at home with his . He is independent of activities of daily living. 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 Denies tobacco, alcohol, or illicit drug use. FAMILY HISTORY: Noncontributory. REVIEW OF SYSTEMS: All systems reviewed and found not to be revealing. PHYSICAL EXAMINATION: VITAL SIGNS: Blood pressure is 145/83, pulse rate 70, respirations 18, temperature is 98.1. GENERAL: Pleasant man in no acute distress. Alert and oriented x3. HEENT: Normocephalic, atraumatic. Without any scleral icterus or perioral cyanosis. Mucous membranes moist. NECK: Soft and supple, without masses. No bruits, jugular venous distention or carotid bruits. CHEST: Clear to auscultation anteriorly. HEART: A regular rate and rhythm. S1-S2. No added sounds. ABDOMEN: Soft, nontender, nondistended, without palpable hepatosplenomegaly. EXTREMITIES: Without clubbing, cyanosis, or edema. Pedal pulses are not palpable but the feet are warm with brisk refill. Right groin site does not reveal any tenderness or hematoma after the angiogram. LABORATORY STUDIES: Reveal a hemoglobin of 15.8, white count of 8800, platelets of 184,000. INR is 0.9. Sodium 135, potassium 4.1, chloride 95, bicarbonate 29, BUN 16, creatinine 0.84, glucose 529, troponin 0.208. Chest x-ray is normal. EKGs are reviewed and showed penelope 3-[address]-segment elevation across the precordium, especially noted in leads V3 and 4. ASSESSMENT AND PLAN:: 1. Cardiac: Patient with ST-segment elevation myocardial infarction. Continue secondary prevention with aspirin, Brilinta, Lipitor and blood pressure medication. Appreciate cardiology assistance. 2. Diabetes out of control. Continue to manage. 3. Prophylaxis with ambulation. Dictated By: Devonte Guerra MD /[email or web address]/[email or web address] /Document#: [id number]
== END 2016-10-06 18:18 | disposition home or self-care (01) | DRG 247 ==
LOC: E/R 08:57 → CCL 10:35 → SDS 10:35 → ICU 12:11 → CCL 15:53 → ICU 15:53 → TEL 10-05 18:06
PROVIDERS: ADMIT Legal Medicine; ATTEND Legal Medicine
PROC: B211YZZ Fluoroscopy of Multiple Coronary Arteries using Other Contrast (ICD-10-PCS; 2016-10-04)
PROC: 027034Z Dilation of Coronary Artery, One Artery with Drug-eluting Intraluminal Device, Percutaneous Approach (ICD-10-PCS; principal; 2016-10-04 11:00)
PROC: 4A023N7 Measurement of Cardiac Sampling and Pressure, Left Heart, Percutaneous Approach (ICD-10-PCS; 2016-10-04 11:00)
DX: I21.09 ST elevation (STEMI) myocardial infarction involving other coronary artery of anterior wall (principal); I10 Essential (primary) hypertension; E11.9 Type 2 diabetes mellitus without complications; I25.5 Ischemic cardiomyopathy; I25.10 Atherosclerotic heart disease of native coronary artery without angina pectoris; E78.5 Hyperlipidemia, unspecified
CPT/HCPCS: 36415; 71010; 80048; 82550; 82553; 82962; 83036; 84484; 85025; 85610; 85730; 87081; 93005; 93306; 96372; 96374; 97161; C1725; C1760; C1769; C1874; C1887; C1894; C9606; J0583; J1644; J1815; J2250; J2405; J3010; J7030; Q9967

== ENCOUNTER → 2016-10-20 | Outpatient (CLI) | payer OTHER ==
[~2016-10-20] MED LIST: ASPI81TA3 PO; ATOR80TA75 PO; CARV3.1260 PO; LANT3I SC; LISI-313 PO; NOVO3I SC; TICA90TA PO
== END | disposition home or self-care (01) ==
LOC: DIB 14:02
PROVIDERS: ATTEND Legal Medicine
DX: Z02.9 Encounter for administrative examinations, unspecified (principal)